=== PATIENT | female | born 1970 | race Caucasian/White ===

== ENCOUNTER 2019-11-16 13:13 | Observation (INO) ==
[2019-11-16] MEDS ORDERED: cefTRIAXone 1,000 MG in Water for inj. (sterile) 10 ML IVP ONE (13:36)
[2019-11-16] MEDS ORDERED: methylPREDNISolone 125 MG/2 ML VIAL IVP ONE (13:36)
[2019-11-16] MEDS ORDERED: Azithromycin 500 MG in 0.9 % Sodium Chloride 250 ML IVPB ONE (13:36)
[2019-11-16 14:10] LABS: Basophils # 0.1 K/mcL (0.0-0.2); Basophils % 0.3 %; Hematocrit 46.5 % (35.3-44.9); Hemoglobin 16.2 g/dL (11.5-15.4); Immature Granulocytes % 1.4 % (0-4); Lymphocytes # 1.8 K/mcL (0.6-4.6); Lymphocytes % 10.8 %; Mean Corpuscular HGB Conc 34.8 g/dL (31.6-35.5); Mean Corpuscular Hemoglobin 33.1 pg (28.0-33.3); Mean Corpuscular Volume 95.1 fL (83.0-100.0); Mean Platelet Volume 10.1 fL (9.4-12.4); Monocytes # 0.8 K/mcL (0.0-1.3); Monocytes % 4.9 %; Neutrophils # 13.8 K/mcL (1.6-8.9); Platelet Count 190 K/mcL (140-400); Red Blood Count 4.89 M/mcL (3.82-4.97); Red Cell Distribution Width 13.2 % (11.5-14.5); Segmented Neutrophils % 82.6 %; White Blood Count 16.7 K/mcL (4.3-11.1)
[2019-11-16 14:26] LABS: BUN/Creatinine Ratio 24 (6-26); Blood Urea Nitrogen 21 mg/dL (6-20); Calcium 9.5 mg/dL (8.6-10.3); Carbon Dioxide 27 mEq/L (23-29); Chloride 100 mEq/L (98-107); Glucose 194 mg/dL (70-105); Osmolality,Calculated 288 (280-300); Potassium 4.1 mEq/L (3.5-5.1); Sodium 135 mEq/L (136-145); Troponin I < 0.03 ng/mL (< 0.04); eGFR For African Americans > 60 (> 60); eGFR For Non-African Americans > 60 (> 60)
[2019-11-16] MEDS ORDERED: Naloxone 0.4 MG/ML INJ IVP PRN (16:09)
[2019-11-16] MEDS ORDERED: MOM Conc 10 ML UD.LIQ PO PRN (16:09)
[2019-11-16] MEDS ORDERED: Acetaminophen 325 MG TABLET PO PRN (16:09)
[2019-11-16] MEDS ORDERED: Mag Hydrox/Al Hydrox/Simeth 30 ML UDC PO PRN (16:09)
[2019-11-16] MEDS ORDERED: Ondansetron ODT 4 MG TAB.RAPDIS SL PRN (16:09)
[2019-11-16] MEDS: *HR* LORazepam 1 MG TABLET PO PRN ×2 (18:15→23:06)
[2019-11-16] MEDS: Ipratropium 1 PUFF INHALER IH SCH (20:07)
[2019-11-16] MEDS: Pregabalin 50 MG CAPSULE PO SCH (20:46)
[2019-11-16] MEDS: Nicotine 21 MG PATCH.TD24 TD SCH (22:57)
[2019-11-17] MEDS: Ipratropium 1 PUFF INHALER IH SCH ×6 (00:05→20:09)
[2019-11-17 04:40] LABS: Hematocrit 43.4 % (35.3-44.9); Mean Corpuscular HGB Conc 34.6 g/dL (31.6-35.5); Mean Corpuscular Hemoglobin 32.5 pg (28.0-33.3); Mean Corpuscular Volume 93.9 fL (83.0-100.0); Mean Platelet Volume 10.4 fL (9.4-12.4); Platelet Count 176 K/mcL (140-400); Red Blood Count 4.62 M/mcL (3.82-4.97); White Blood Count 11.5 K/mcL (4.3-11.1)
[2019-11-17 04:59] LABS: BUN/Creatinine Ratio 28 (6-26); Blood Urea Nitrogen 23 mg/dL (6-20); Carbon Dioxide 26 mEq/L (23-29); Chloride 102 mEq/L (98-107); Glucose 205 mg/dL (70-105); Magnesium 2.1 mg/dL (1.6-2.6); Osmolality,Calculated 290 (280-300); Potassium 4.6 mEq/L (3.5-5.1); Sodium 135 mEq/L (136-145); eGFR For African Americans > 60 (> 60); eGFR For Non-African Americans > 60 (> 60)
[2019-11-17] MEDS: Pregabalin 50 MG CAPSULE PO SCH ×2 (08:48→20:24)
[2019-11-17] MEDS: Furosemide 40 MG TABLET PO SCH (08:49)
[2019-11-17] MEDS ORDERED: Azithromycin 500 MG in 0.9 % Sodium Chloride 250 ML IVPB SCH (09:00)
[2019-11-17] MEDS ORDERED: predniSONE 20 MG TABLET PO SCH (09:00)
[2019-11-17] MEDS: *HR* LORazepam 1 MG TABLET PO PRN ×2 (09:02→18:06)
[2019-11-17] MEDS: Tiotropium 18 MCG inhalation IH SCH (15:35)
[2019-11-17] MEDS: Budesonide/Formoterol 160/4.5 1 PUFF INH IH SCH ×2 (15:36→20:08)
[2019-11-17] MEDS: MethylPREDNISolone 40 MG/ML VIAL IVP SCH ×2 (16:06)
[2019-11-17] MEDS ORDERED: *HR* LORazepam 1 MG TABLET PO ONE (19:40)
[2019-11-17] MEDS: Nicotine 21 MG PATCH.TD24 TD SCH (20:23)
[2019-11-18] MEDS: MethylPREDNISolone 40 MG/ML VIAL IVP SCH ×2 (00:09→05:20)
[2019-11-18] MEDS: *HR* LORazepam 1 MG TABLET PO PRN ×2 (00:49→07:56)
[2019-11-18] MEDS: Ipratropium 1 PUFF INHALER IH SCH ×3 (00:55→07:47)
[2019-11-18] MEDS ORDERED: *HR* Enoxaparin 40 MG/0.4 ML SYRINGE SQ SCH (06:00)
[2019-11-18 06:23] LABS: Basophils # 0.1 K/mcL (0.0-0.2); Basophils % 0.6 %; Hematocrit 44.4 % (35.3-44.9); Hemoglobin 15.2 g/dL (11.5-15.4); Immature Granulocytes % 3.9 % (0-4); Lymphocytes # 1.4 K/mcL (0.6-4.6); Lymphocytes % 11.8 %; Mean Corpuscular HGB Conc 34.2 g/dL (31.6-35.5); Mean Corpuscular Hemoglobin 32.1 pg (28.0-33.3); Mean Corpuscular Volume 93.9 fL (83.0-100.0); Mean Platelet Volume 10.5 fL (9.4-12.4); Monocytes # 0.5 K/mcL (0.0-1.3); Monocytes % 4.7 %; Neutrophils # 9.1 K/mcL (1.6-8.9); Platelet Count 184 K/mcL (140-400); Red Blood Count 4.73 M/mcL (3.82-4.97); Red Cell Distribution Width 12.6 % (11.5-14.5); White Blood Count 11.5 K/mcL (4.3-11.1)
[2019-11-18 06:32] VITALS: BP 134/88
[2019-11-18 06:45] LABS: BUN/Creatinine Ratio 27 (6-26); Blood Urea Nitrogen 22 mg/dL (6-20); Calcium 8.8 mg/dL (8.6-10.3); Carbon Dioxide 25 mEq/L (23-29); Chloride 99 mEq/L (98-107); Glucose 290 mg/dL (70-105); Osmolality,Calculated 288 (280-300); Potassium 4.2 mEq/L (3.5-5.1); Sodium 132 mEq/L (136-145); eGFR For African Americans > 60 (> 60); eGFR For Non-African Americans > 60 (> 60)
[2019-11-18] MEDS: Budesonide/Formoterol 160/4.5 1 PUFF INH IH SCH (07:46)
[2019-11-18] MEDS: Tiotropium 18 MCG inhalation IH SCH (07:48)
[2019-11-18] MEDS: Pregabalin 50 MG CAPSULE PO SCH (07:58)
[2019-11-18] MEDS: Furosemide 40 MG TABLET PO SCH (07:58)
[2019-11-18] MEDS ORDERED: Azithromycin 250 MG TABLET PO SCH (09:00)
== END 2019-11-18 09:19 | disposition home or self-care (01) ==
LOC: EMEROOARM 13:13 → 2NENU 13:13 → SUATTDRO 15:33 → 2NENU 16:11 → 3ANU 11-18 00:30
PROVIDERS: ADMIT Internal Medicine; ATTEND Student in an Organized Health Care Education/Training Program

== ENCOUNTER 2019-11-23 21:20 | Observation (INO) ==
[2019-11-23 22:23] LABS: Alanine Aminotransferase 26 Units/L (7-52); Albumin 4.2 g/dL (3.5-5.7); Albumin/Globulin Ratio 1.8 (1.1-2.2); Alkaline Phosphatase 68 Units/L (34-104); Aspartate Amino Transferase 12 Units/L (13-39); BUN/Creatinine Ratio 20 (6-26); Bilirubin,Total 0.4 mg/dL (0.3-1.0); Blood Urea Nitrogen 20 mg/dL (6-20); Calcium 9.3 mg/dL (8.6-10.3); Carbon Dioxide 25 mEq/L (23-29); Chloride 101 mEq/L (98-107); Globulin 2.3 g/dL (2.4-3.5); Glucose 193 mg/dL (70-105); Osmolality,Calculated 290 (280-300); Potassium 3.7 mEq/L (3.5-5.1); Sodium 136 mEq/L (136-145); Total Protein 6.5 g/dL (6.4-8.9); Troponin I < 0.03 ng/mL (< 0.04); eGFR For African Americans > 60 (> 60); eGFR For Non-African Americans > 60 (> 60)
[2019-11-23 22:30] LABS: Basophils % 0.1 %; Eosinophils % 0.1 %; Hematocrit 43.2 % (35.3-44.9); Hemoglobin 14.9 g/dL (11.5-15.4); Immature Granulocytes % 1.3 % (0-4); Lymphocytes # 2.6 K/mcL (0.6-4.6); Lymphocytes % 17.4 %; Mean Corpuscular HGB Conc 34.5 g/dL (31.6-35.5); Mean Corpuscular Hemoglobin 32.4 pg (28.0-33.3); Mean Corpuscular Volume 93.9 fL (83.0-100.0); Monocytes # 0.7 K/mcL (0.0-1.3); Monocytes % 4.8 %; Neutrophils # 11.2 K/mcL (1.6-8.9); Platelet Count 162 K/mcL (140-400); Red Cell Distribution Width 13.4 % (11.5-14.5); Segmented Neutrophils % 76.3 %; White Blood Count 14.7 K/mcL (4.3-11.1)
[2019-11-24] MEDS ORDERED: *HR* LORazepam 2 MG/ML VIAL IVP ONE (00:10)
[2019-11-24] MEDS ORDERED: Naloxone 0.4 MG/ML INJ IVP PRN ×2 (01:58→02:10)
[2019-11-24] MEDS ORDERED: 0.9 % Sodium Chloride 1,000 ML IVC SCH (02:00)
[2019-11-24] MEDS ORDERED: Nitroglycerin 0.4 MG TAB.SUBL SL PRN ×2 (02:10→02:16)
[2019-11-24] MEDS ORDERED: Benzonatate 100 MG CAPSULE PO SCH (02:15)
[2019-11-24] MEDS ORDERED: Aspirin Enteric Coated 325 MG Tablet PO ONE (02:16)
[2019-11-24] MEDS ORDERED: Acetaminophen 325 MG TABLET PO PRN (02:16)
[2019-11-24] MEDS ORDERED: Clotrimazole 1% CRM 15 GM TUBE TP SCH (02:30)
[2019-11-24] MEDS ORDERED: Melatonin 3 MG TABLET PO ONE (02:58)
[2019-11-24 03:46] LABS: Basophils % 0.2 %; Eosinophils % 0.3 %; Hematocrit 42.7 % (35.3-44.9); Hemoglobin 14.3 g/dL (11.5-15.4); Immature Granulocytes % 1.1 % (0-4); Lymphocytes # 3.9 K/mcL (0.6-4.6); Lymphocytes % 28.6 %; Mean Corpuscular HGB Conc 33.5 g/dL (31.6-35.5); Mean Corpuscular Hemoglobin 32.2 pg (28.0-33.3); Mean Corpuscular Volume 96.2 fL (83.0-100.0); Mean Platelet Volume 10.1 fL (9.4-12.4); Monocytes # 0.8 K/mcL (0.0-1.3); Monocytes % 5.9 %; Neutrophils # 8.8 K/mcL (1.6-8.9); Platelet Count 152 K/mcL (140-400); Red Blood Count 4.44 M/mcL (3.82-4.97); Red Cell Distribution Width 13.2 % (11.5-14.5); Segmented Neutrophils % 63.9 %; White Blood Count 13.8 K/mcL (4.3-11.1)
[2019-11-24] MEDS: Ipratropium 1 PUFF INHALER IH SCH ×2 (03:54→07:42)
[2019-11-24 04:10] LABS: BUN/Creatinine Ratio 26 (6-26); Blood Urea Nitrogen 21 mg/dL (6-20); C-Reactive Protein < 5 mg/L (Less than 10); Calcium 8.4 mg/dL (8.6-10.3); Carbon Dioxide 25 mEq/L (23-29); Chloride 103 mEq/L (98-107); Glucose 185 mg/dL (70-105); Magnesium 2.1 mg/dL (1.6-2.6); Osmolality,Calculated 290 (280-300); Phosphorous 3.4 mg/dL (2.7-4.5); Potassium 3.5 mEq/L (3.5-5.1); Sodium 136 mEq/L (136-145); eGFR For African Americans > 60 (> 60); eGFR For Non-African Americans > 60 (> 60)
[2019-11-24 04:12] LABS: Troponin I < 0.03 ng/mL (< 0.04)
[2019-11-24] MEDS ORDERED: *HR* Heparin 5,000 UNIT/ML VIAL SQ SCH (06:00)
[2019-11-24 06:23] VITALS: BP 106/55
[2019-11-24 08:18] LABS: Estimated Average Glucose 143 mg/dl
[2019-11-24] MEDS ORDERED: Nicotine 21 MG PATCH.TD24 TD SCH (09:00)
[2019-11-24] MEDS ORDERED: Pregabalin 50 MG CAPSULE PO SCH (09:00)
[2019-11-24] MEDS ORDERED: Budesonide/Formoterol 160/4.5 1 PUFF INH IH SCH (10:00)
== END 2019-11-24 09:46 | disposition home or self-care (01) ==
LOC: 2NENU 21:20 → EMEROOARM 21:20 → SUATTDRO 23:40 → 2NENU 11-24 00:38
PROVIDERS: ADMIT Family Medicine; ATTEND Internal Medicine